=== PATIENT | male | born 1990 | race Caucasian/White ===

== ENCOUNTER 2016-04-06 09:46 | Outpatient (RCR) | payer BC ==
--- OUTSIDE RECORDS SUMMARY | 2016-03-31 10:05 | XMS REPORT | Continuity of Care Document ---
Author Author [facility] Organization [facility] Address Unknown Phone Unavailable Care Team Providers Care Signal Manager Name Role Phone LISA MCGRAW DO PCP Insurance Providers Payer Name Policy Number Subscriber Name Relationship [facility] [id number] Gene Rehman 18 Self / Same As Patient Advance Directives Directive Response Recorded Date/Time Advance Directives No 03/28/16 10:06am Health Care Power of Global Account Executive No 03/28/16 10:06am Organ Donor Yes 03/28/16 10:06am Resuscitation Status Full Code 03/28/16 10:06am Chief Complaint and Reason for Visit Chief Complaint CELLULITIS,ABCESS Reason for Visit Abscess of left axilla Left arm cellulitis Problems Active Problems Medical Problem Onset Date Status Abscess of left axilla Unknown Acute Left arm cellulitis Unknown Acute Medications Current Home Medications Medication Dose Units Route Directions Days/Qty Instructions Start Date Ibuprofen 200 Mg 600-800 Mg Oral Three Times A Day as needed for Pain 03/28/16 Daptomycin 500 Mg 300 Mg Intraven Daily 7 Days 03/30/16 Hydrocodone/Acetaminophen 1 Each 1 Tab Oral Every 4HRS as needed for Moderate Pain 60 03/30/16 Lactobacillus Acidophilus 1 Each 1 Each Oral Three Times A Day 30 06/14 Past Home Medications Medication Directions Ordered Status Sulfamethoxazole/Trimethoprim 1 Each Tablet, 1 Tab Oral Twice A Day 03/28/16 Discontinued Social History Social History Problem Response Recorded Date/Time Alcohol Use Denies Use 03/28/2016 1:13pm Recreational Drug Use No 03/28/2016 10:30am Recent Foreign Travel No 03/28/2016 10:30am Recent Infectious Disease Exposure No 03/28/2016 10:30am Hospitalization with Isolation Denies 03/30/2016 3:57pm Sexually Transmitted Disease No 03/28/2016 10:30am HIV/AIDS No 03/28/2016 10:30am Smoking Status Never a Smoker 03/28/2016 1:13pm Type Used Cigarettes Smokeless Tobacco 03/28/2016 10:09am Recent Hopitalizations No 03/28/2016 10:30am Sexually Transmitted Disease No 03/28/2016 10:30am Hospitalization with Isolation Denies 03/30/2016 3:57pm Query Response Start Date Stop Date Smoking Status Never a Smoker Hospital Discharge Instructions Patient Instructions Physician Instructions Patient Instructions: get a probiotic from the pharmacy - like [facility] or [facility] or [facility] - this will help to prevent a dangerous diarrheal illness called clostridum difficile follow up with dr. jimenez and dr. mcgraw as previously directed in the next 7 days Resume Normal Activity: No Discharge Diet: Regular Diet Diet for 24 Hours: No Alcohol Drink 6-8 Glasses of Fluid/Day: Yes Driving Instructions: No Driving for 24 Hours Return to The Hospital For: any sign of worsening illness or injury or worsening infection symptoms Symptoms to Reoprt to : Swelling Increased, Fever Over 101 Degrees F, Diarrhea(Persistant) For Problems or Questions: Contact Your Physician, Go to Emergency Room Infection Signs and Symptoms: Increased Redness, Foul Odor of Wound, Increased Drainage, Skin Itchy or Has a Rash, Increased Swelling, Temperature Above 101 F Care Plan Patient Instructions:: get a probiotic from the pharmacy - like [facility] or [facility] or [facility] - this will help to prevent a dangerous diarrheal illness called clostridum difficilefollow up with dr. jimenez and dr. mcgraw as previously directed in thenext 7 days Plan of Care Discharge Date 03/30/16 3:10pm Disposition 01 HOME, SELF-CARE Instructions/Education Provided Cellulitis (Skin Infection), Adult (DC) Forms Provided Return to Work Form Prescriptions See Medication Section Additional Instructions/Education change dressing daily and as needed, use telfa, gauze and secure with tape Care Plan and Goals See Discharge Instructions Section Functional Status Query Response Date Recorded Patient Orientation Person Place Time Situation Eyes Open March 30, 2016 3:57pm Comprehension Ability Understands Concepts March 28, 2016 10:30am Allergies, Adverse Reactions, Alerts No known allergies. Immunizations Name Given Type FLU TRIvalent 5 years - Adult 03/28/16 Administered Vital Signs Acute Vital Signs Vital Response Date/Time Temperature (Fahrenheit) 99.1 degrees F (97.6 - 99.5) 03/30/2016 2:50pm Temperature (Calculated Celsius) 37.97401 degrees C (36.4 - 37.5) 03/30/2016 12:00pm Temperature Source Tympanic 03/30/2016 2:50pm Pulse Rate (adult) 80 bpm (60 - 90) 03/30/2016 2:50pm Respiratory Rate 18 bpm (12 - 24) 03/30/2016 2:50pm O2 Sat by Pulse Oximetry 99 % (88 - 100) 03/30/2016 2:50pm Blood Pressure 125/78 mm Hg 03/30/2016 2:50pm Blood Pressure Mean 94 mm Hg 03/30/2016 12:00pm Pain Numeric Pain Scale 2 03/30/2016 2:50pm Height (Feet) 6 feet 03/28/2016 10:04am Height (Inches) 0.00 inches 03/28/2016 10:04am Height (Calculated Centimeters) 182.201592 cm 03/28/2016 10:04am Weight (Pounds) 149 pounds 03/28/2016 10:04am Weight (Ounces) 8.0 oz 03/28/2016 10:04am Weight (Calculated Grams) 51183.06 gm 03/28/2016 10:04am Weight (Calculated Kilograms) 67.935719 kilograms 03/28/2016 10:04am Calculated BMI 20.3 03/28/2016 10:04am Results Laboratory Results Test Name Result Units Flags Reference Collection Date/Time Result Date/ Time Comments White Blood Count 11.1 10^3/uL H 4.3-11.0 03/30/2016 4:39am 03/30/2016 5: 22am Red Blood Count 4.64 10^6/uL 4.35-5.85 03/30/2016 4:39am 03/30/2016 5: 22am Hemoglobin 14.0 G/DL 13.3-17.7 03/30/2016 4:39am 03/30/2016 5:22am Hematocrit 41 % 40-54 03/30/2016 4:39am 03/30/2016 5:22am Mean Corpuscular Volume 88 FL 80-99 03/30/2016 4:39am 03/30/2016 5: 22am Mean Corpuscular Hemoglobin 30 PG 25-34 03/30/2016 4:39am 03/30/2016 5: 22am Mean Corpuscular Hemoglobin Concent 34 G/DL 32-36 03/30/2016 4:39am 05/2015 5:22am Red Cell Distribution Width 13.2 % 10.0-14.5 03/30/2016 4:39am 2015 5:22am Platelet Count 221 10^3/uL 130-400 03/30/2016 4:39am 03/30/2016 5:22am Mean Platelet Volume 9.8 FL 7.4-10.4 03/30/2016 4:39am 03/30/2016 5: 22am Neutrophils (%) (Auto) 69 % 42-75 03/30/2016 4:39am 03/30/2016 5:22am Lymphocytes (%) (Auto) 25 % 12-44 03/30/2016 4:39am 03/30/2016 5:22am Monocytes (%) (Auto) 6 % 0-12 03/30/2016 4:39am 03/30/2016 5:22am Eosinophils (%) (Auto) 0 % 0-10 03/30/2016 4:39am 03/30/2016 5:22am Basophils (%) (Auto) 1 % 0-10 03/30/2016 4:39am 03/30/2016 5:22am Neutrophils # (Auto) 7.6 X 10^3 1.8-7.8 03/30/2016 4:39am 03/30/2016 5: 22am Lymphocytes # (Auto) 2.8 X 10^3 1.0-4.0 03/30/2016 4:39am 03/30/2016 5: 22am Monocytes # (Auto) 0.6 X 10^3 0.0-1.0 03/30/2016 4:39am 03/30/2016 5: 22am Eosinophils # (Auto) 0.0 10^3/uL 0.0-0.3 03/30/2016 4:39am 03/30/2016 5 :22am Basophils # (Auto) 0.1 10^3/uL 0.0-0.1 03/30/2016 4:39am 03/30/2016 5: 22am Sodium Level 137 MMOL/L 135-145 03/28/2016 1:05pm 03/28/2016 1:29pm Potassium Level 4.2 MMOL/L 3.6-5.0 03/28/2016 1:05pm 03/28/2016 1:29pm Chloride Level 105 MMOL/L 98-107 03/28/2016 1:05pm 03/28/2016 1:29pm Carbon Dioxide Level 25 MMOL/L 21-32 03/28/2016 1:05pm 03/28/2016 1: 29pm Anion Gap 7 MMOL/L 5-14 03/28/2016 1:05pm 03/28/2016 1:29pm Blood Urea Nitrogen 9 MG/DL 7-18 03/28/2016 1:05pm 03/28/2016 1:29pm Creatinine 1.02 MG/DL 0.60-1.30 03/28/2016 1:05pm 03/28/2016 1:29pm BUN/Creatinine Ratio 9 03/28/2016 1:05pm 03/28/2016 1:29pm Estimat Glomerular Filtration Rate > 60 03/28/2016 1:05pm 2015 1:29pm GFR INTERPRETIVE DATA UNITS FOR ESTIMATED GFR (eGFR): mL/min/1.73 M2 REFERENCE RANGE FOR ESTIMATED GFR (eGFR) eGFR NORMAL eGFR >60 MODERATELY DECREASED eGFR 30-59 SEVERLY DECREASED eGFR 15-29 KIDNEY FAILURE <15 (OR DIALYSIS) Glucose Level 105 MG/DL 70-105 03/28/2016 1:05pm 03/28/2016 1:29pm Calcium Level 9.0 MG/DL 8.5-10.1 03/28/2016 1:05pm 03/28/2016 1:29pm Total Bilirubin 0.4 MG/DL 0.1-1.0 03/28/2016 1:05pm 03/28/2016 1:29pm Alkaline Phosphatase 58 U/L 40-136 03/28/2016 1:05pm 03/28/2016 1:29pm Aspartate Amino Transf (AST/SGOT) 19 U/L 5-34 03/28/2016 1:05pm 2015 1:29pm Alanine Aminotransferase (ALT/SGPT) 17 U/L 0-55 03/28/2016 1:05pm 03/28 1:29pm Total Protein 6.5 G/DL 6.4-8.2 03/28/2016 1:05pm 03/28/2016 1:29pm Albumin 4.4 G/DL 3.2-4.5 03/28/2016 1:05pm 03/28/2016 1:29pm C-Reactive Protein High Sensitivity 0.73 MG/DL H 0.00-0.50 03/30/2016 4: 39am 03/30/2016 5:42am Vancomycin Level Trough 15.0 UG/ML 10.0-20.0 03/30/2016 8:10am 2015 8:51am Microbiology Results Procedure Source Result Collection Date/Time Result Date/Time MRSA Screen Nasal MRSA not isolated 03/28/2016 1:45pm 03/29/2016 4:11pm Surgical Culture Abscess, Axilla, Left STAPHYLOCOCCUS AUREUS 03/28/2016 6: 08pm 03/30/2016 8:19am Procedures Procedure Status Date Provider(s) Incision and drainage Completed 03/28/16 KATHE JIMENEZ MD Encounters Encounter Location Arrival/Admit Date Discharge/Depart Date Attending Provider Discharged Inpatient [facility] 03/28/16 10:04am 3:10pm LISA MCGRAW DO Recent Diagnosis Abscess of left axilla Left arm cellulitis
[2016-03-31 10:39] VITALS: BP 149/84
[2016-03-31] MEDS: DAPTOMYCIN IV SCH (10:46)
[2016-03-31] MEDS: NORMAL SALINE IV SCH (10:46)
[2016-04-01 11:18] VITALS: BP 124/84
[2016-04-01] MEDS: DAPTOMYCIN IV SCH (11:18)
[2016-04-01] MEDS: NORMAL SALINE IV SCH (11:18)
[2016-04-01 11:45] VITALS: BP 124/84
[2016-04-02 09:35] VITALS: BP 117/81
[2016-04-02] MEDS: NORMAL SALINE IV SCH (09:40)
[2016-04-02] MEDS: DAPTOMYCIN IV SCH (09:40)
[2016-04-03] MEDS: NORMAL SALINE IV SCH (09:28)
[2016-04-03] MEDS: DAPTOMYCIN IV SCH (09:28)
[2016-04-03 10:00] VITALS: BP 116/82
--- NOTE | 2016-04-03 13:05 | Physician Query-Final Dx ---
ALDO GAYTAN 04/03/16 1305: Clinic Account Progress/Dx Physician Query: Please give diagnosis Please give a diagnosis for the Cubicin treatement thank you Date of Service Apr 03, 2016 at 08:52 LISA SAINZ DO 04/06/16 1651: Clinic Account Progress/Dx DIAGNOSIS: Diagnosis Left Axillary Abscess with MRSA ALDO GAYTAN Apr 03, 2016 13:05 LISA SAINZ DO Apr 06, 2016 16:51
[2016-04-04 09:40] VITALS: BP 119/84
[2016-04-04] MEDS: NORMAL SALINE IV SCH (09:40)
[2016-04-04] MEDS: DAPTOMYCIN IV SCH (09:40)
[2016-04-05] MEDS: DAPTOMYCIN IV SCH (09:45)
[2016-04-05] MEDS: NORMAL SALINE IV SCH (09:45)
[2016-04-05 10:29] VITALS: BP 121/68
[~2016-04-06] VITALS: Ht 182.9 cm; Wt 68.0 kg
[~2016-04-06 09:46] MED LIST: DAPT500V2 IV; HYDR-3812 PO; IBUP-30 PO; LACT1CAP8 PO; SULF1TAB35 PO
[2016-04-06] MEDS: DAPTOMYCIN IV SCH (10:05)
[2016-04-06] MEDS: NORMAL SALINE IV SCH (10:05)
[2016-04-06 10:38] VITALS: BP 124/82
== END 2016-06-29 | disposition home or self-care (01) ==
LOC: SDC 09:46
PROVIDERS: ATTEND Family Medicine
DX: L02.412 Cutaneous abscess of left axilla (principal); B95.62 Methicillin resistant Staphylococcus aureus infection as the cause of diseases classified elsewhere
CPT/HCPCS: 96365; 99211

== ENCOUNTER 2017-06-20 12:39 | Emergency (ER) | payer BC, OTHER ==
[~2017-06-20] VITALS: Ht 182.9 cm; Wt 74.8 kg
[~2017-06-20 12:39] MED LIST changes: +ACHD5005 PO; -HYDR-3812 PO
--- NOTE | 2017-06-20 13:31 | ED Upper Extremity ---
General Chief Complaint: Upper Extremity Stated Complaint: LEFT FINGER INJ Source: patient Exam Limitations: no limitations History of Present Illness Date Seen by Provider: Jun 20, 2017 Time Seen by Provider: 13:29 Initial Comments To ER with the left pinky finger injury. He was at work at [employer] when his left finger ran into his arm is now unable to straighten and believes it to be dislocated. Onset: this evening Severity: moderate Pain/Injury Location: left 5th finger Modifying Factors: Worse With Movement Allergies and Home Medications Allergies Coded Allergies: No Known Drug Allergies (Unverified , 06/20/17) Home Medications Daptomycin 500 Mg Vial, 300 MG IV DAILY for 7 Days Prescribed by: ROOPA RODRIGUEZ on 03/30/16 1411 Hydrocodone Bit/Acetaminophen 1 Each Tablet, 1 TAB PO Q4H PRN for MODERATE PAIN , #60 Prescribed by: ROOPA RODRIGUEZ on 03/30/16 1411 Ibuprofen 200 Mg Tablet, 600-800 MG PO TID PRN for PAIN, (Reported) Lactobacillus Acidophilus 1 Each Capsule, 1 EACH PO TID, #30 Prescribed by: ROOPA RODRIGUEZ on 03/30/16 1414 Constitutional: see HPI EENTM: see HPI Respiratory: no symptoms reported Cardiovascular: no symptoms reported Genitourinary: no symptoms reported Musculoskeletal: see HPI Skin: no symptoms reported Psychiatric/Neurological: No Symptoms Reported Past Ppvxsuf-Ozashr-Bwzzyq Hx Patient Social History Drug of Choice: THC Type Used: Smokeless Tobacco Recent Foreign Travel: No Contact w/Someone Who Travel: No Recent Hopitalizations: No Immunizations Up To Date Tetanus Booster (TDap): Less than 5yrs PED Vaccines UTD: Yes Seasonal Allergies Seasonal Allergies: No Respiratory Currently Using CPAP: No Currently Using BIPAP: No Reproductive System Hx Reproductive Disorders: No Sexually Transmitted Disease: No HIV/AIDS: No HEENT Loss of Vision: Denies Hearing Impairment: Denies Family Medical History Family Medial History: Prostate cancer PATERNAL GRANDFATHER Physical Exam Vital Signs Vital Signs - First Documented 06/20/17 13:29 Temp 98.1 Pulse 81 Resp 20 B/P (MAP) 128/95 (106) Pulse Ox 98 Capillary Refill : General Appearance: WD/WN, no apparent distress HEENT: PERRL/EOMI, normal ENT inspection Neck: non-tender, full range of motion Respiratory: no respiratory distress, no accessory muscle use Gastrointestinal: normal bowel sounds, non tender, soft Shoulder: normal inspection, non-tender Elbow/Forearm: normal inspection, non-tender, Left Wrist: Yes normal inspection, Yes non-tender Hand: Left, deformity (left 5th finger) Neurologic/Psychiatric: alert, normal mood/affect, oriented x 3 Skin: normal color, warm/dry Progress/Results/Core Measures Results/Orders My Orders Orders - AMANDA ALICIA APRN Hand, Left, 3 Views (06/20/17 13:23) Vital Signs/I&O Vital Sign - Last 12Hours 06/20/17 13:29 Temp 98.1 Pulse 81 Resp 20 B/P (MAP) 128/95 (106) Pulse Ox 98 Departure Communication (Admissions) Progress Notes 1353- pinky finger was easily reduced applying traction and dorsal pressure over the middle phalanx. Full range of motion of the finger. We'll place in a splint. I am not going to order repeat x-rays to confirm reduction because he has full range of motion now. He opted to do the reduction without anesthesia so we did not use lidocaine. Impression Impression: Primary Impression: Finger dislocation Disposition: HOME, SELF-CARE Condition: Stable Departure-Patient Inst. Decision time for Depature: 13:54 Referrals: LISA SAINZ DO (PCP/Family) Primary Care Physician Patient Instructions: Finger Dislocation (DC) Add. Discharge Instructions: 1. Wear the splint at all times for the next week except when showering 2. Ibuprofen as needed for pain. This is not adequately controlling your pain, then fill the pain pills to use as needed. All discharge instructions reviewed with patient and/or family. Voiced understanding. Scripts Hydrocodone/Acetaminophen (Spring 5-325 Tablet) 1 Each Tablet 1 EACH PO Q4H Y for PAIN-SEVERE, #5 TAB Prov: AMANDA ALICIA APRN 06/20/17 AMANDA ALICIA APRN Jun 20, 2017 13:30
[2017-06-20] MEDS ORDERED: HYDR-757 PO (13:55)
[2017-06-20 14:04] VITALS: BP 126/87
--- NOTE | 2017-06-20 14:04 | Diagnostic Imaging Report ---
INDICATION: Injury to the fifth finger on the left. Time of exam 2:05 PM 3 views of the left hand demonstrate dislocation at the level of the PIP joint of the fifth finger. The middle phalanx is dislocated dorsally in relation to the proximal phalanx. No fracture is seen. Metacarpals are intact. IMPRESSION: PIP joint dislocation of the fifth finger, as described. No fracture is identified. Dictated by: Dictated on workstation # [id number]
== END 2017-06-20 14:04 | disposition home or self-care (01) ==
LOC: EDUNIT# 12:39 → ER 12:41
DX: S63.287A Dislocation of proximal interphalangeal joint of left little finger, initial encounter (principal); X50.0XXA Overexertion from strenuous movement or load, initial encounter; Y92.59 Other trade areas as the place of occurrence of the external cause
CPT/HCPCS: 29130; 73130